=== PATIENT | male | born 1995 | race Caucasian/White ===

== ENCOUNTER 2020-04-04 10:45 | Outpatient (CLI) | payer OTHER, SELFPAY ==
--- NOTE | ~2020-04-04 | US_ITS ---
US breast RT limited 04/04/2020 11:11 Indication: Palpable lump right breast Procedure: High-resolution ultrasound of the right breast Comparison: No prior studies for comparison. Findings: There is heterogeneous soft tissue in the subareolar location of the right breast consisten t with prominent breast bud, consistent with gynecomastia. No discrete mass identified. Impression: 1: No sonographic evidence for malignancy in the right breast. BI-RADS CATEGORY 2 - BENIGN FINDINGS Reviewed, dictated and finalized at location A. Impression: 1: No sonographic evidence for malignancy in the right breast. BI-RADS CATEGORY 2 - BENIGN FINDINGS
== END 2020-04-04 10:46 | disposition home or self-care (01) ==
LOC: ANHIMG 10:52
PROVIDERS: PCP Family Medicine; Visit Provider Family Medicine
DX: N63.10 Unspecified lump in the right breast, unspecified quadrant (principal); E66.9 Obesity, unspecified
CPT/HCPCS: 76642